=== PATIENT | female | born 1935 | race American Indian/Alaskan Native ===

== ENCOUNTER 2018-03-08 09:11 | Day surgery (SDC) | payer MEDICARE ==
[2018-03-08] MEDS ORDERED: NACL 0.9% 1000 ML 1,000 ML ONE (09:18)
[2018-03-08] MEDS ORDERED: XYLOCAINE MPF 2% ONE (10:00)
--- NOTE | 2018-03-08 11:36 | Anesthesia Consultation ---
Anesthesia Consult and Med Hx Date of service: 03/08/18 - Airway Anesthetic Teeth Evaluation: Poor ROM Head & Neck: Adequate Mental/Hyoid Distance: Adequate Mallampati Class: Class II Intubation Access Assessment: Probably Good - Pulmonary Exam CTA: Yes - Cardiac Exam Cardiac Exam: RRR - Pre-Operative Health Status ASA Pre-Surgery Classification: ASA3 Proposed Anesthetic Plan: MAC - Pulmonary Hx Asthma: Yes - Cardiovascular System Hx Hypertension: Yes - Central Nervous System CVA: Yes - Endocrine Hx Hypothyroidism: Yes - Hematic Hx Anemia: Yes
[2018-03-08] MEDS ORDERED: DIPRIVAN 10 MG/ML IV ONE ×2 (11:37)
--- NOTE | 2018-03-08 11:37 | Anesthesia Day of Surgery ---
Anesthesia Day of Surgery - Day of Surgery Patient Examined: Yes Patient H&P Reviewed: Yes Patient is NPO: Yes
[2018-03-08] MEDS ORDERED: WATER FOR IRRIG STERILE IR ONE (11:39)
[2018-03-08] MEDS ORDERED: WATER FOR IRRIG STERILE ONE (11:39)
[2018-03-08] MEDS ORDERED: NACL 0.9% 1000 ML 1,000 ML IV SCH (12:00)
--- NOTE | 2018-03-08 12:22 | Operative Report ---
Operative Report Operative Report: Date: 03/08/2018 Operative Report: Date of procedure: 03/08/2018 Procedure: Esophagogastroduodenoscopy with multiple mucosal biopsies Attending physician: Constantine Esteban MD Staff Development Manager: Constantine Esteban MD Indication: Patient is a 82-year-old female who presented with a history of dyspepsia with early satiety, abnormal weight loss, iron deficiency anemia and guaiac-positive stool. An upper endoscopy is done to assess patient so that treatment may be directed based on the findings. Consent: Informed consent was obtained after advising the patient and family regarding nature of this procedure, its indications, potential benefits as well as possible complications including but not limited to bleeding perforation and adverse reaction to medication, infection as well as other cardiopulmonary complications. An informed written and verbal consent was then obtained after due opportunity was provided for questions and answers. Monitoring: Patient was monitored continuously with pulse oximetry and electrocardiographic recordings as well as blood pressure recordings. Vital signs remained stable throughout this procedure with no untoward events. Preoperative assessment: Patient was assessed immediately prior to this procedure for capacity to tolerate monitored anesthesia care and moderate sedation as well as general anesthesia. Patient's ASA classification is 2, Mallampati class is 2, Hyomental distance is 3. Instrument: [id number] video endoscope Medications: Propofol given intravenously in divided doses. For details please refer to anesthesia records. Description of procedure: Patient was placed in the left lateral decubitus position after achieving sedation, the endoscope was introduced into the esophagus under direct vision. It was then advanced beyond the esophagus into the stomach and then beyond the stomach into the duodenum and to the second portion of the duodenum. It was subsequently withdrawn with careful inspection of all mucosal surfaces with the following findings. Findings: Esophagus was normal however. There was a 1-2 cm sliding hiatal hernia seen on entry into the stomach. The stomach appeared normal.. Biopsies of the antrum were obtained for histopathology, to rule out microscopic disease. The duodenum was normal to second portion. Impression: Hiatal hernia Status post Mucos biopsies of the gastric antrum . Plan: Follow pathology report. Direct additional treatment based on the pathology report.
--- NOTE | 2018-03-08 12:26 | Operative Report ---
Operative Report Operative Report: Date of procedure: 03/08/2018 Procedure: Colonoscopy. Attending physician: Constantine Esteban MD Shingle Trimmer: Constantine Esteban MD Indication: Patient is a 82-year-old female who presents for screening colonoscopy. Patient also has guaiac positive stool. The colonoscopy serves to evaluate patient so that treatment may be directed based on the findings. Consent: Informed consent was obtained after advising the patient and family regarding nature of this procedure, its indications, potential benefits as well as possible complications including but not limited to bleeding perforation and adverse reaction to medication, infection as well as other cardiopulmonary complications. An informed written and verbal consent was then obtained after due opportunity was provided for questions and answers. Monitoring: Patient was monitored continuously with pulse oximetry and electrocardiographic recordings as well as blood pressure recordings. Vital signs remained stable throughout this procedure with no untoward events. Preoperative assessment: Patient was assessed immediately prior to this procedure for capacity to tolerate monitored anesthesia care and moderate sedation as well as general anesthesia. Patient's ASA classification is 2, Mallampati class is 2, Hyomental distance is 3. Instrument: [employer] Peopl[employer] video colonoscope Medications: Propofol given intravenously in divided doses. For details please refer to anesthesia records. Description of procedure: Patient was placed in the left lateral decubitus position after achieving sedation, a digital rectal examination was performed following which the colonoscope was introduced into the anal verge and advanced to the cecum which was identified by the cecal valve, the appendiceal orifice, as well as by the cecal strap and direct transillumination. The colonoscope was subsequently withdrawn with careful inspection of all mucosal surfaces. Patient tolerated this procedure well and was subsequently taken to the recovery room. The following findings were noted. Findings: Patient had diverticula involving the sigmoid descending colon and the ascending colon. The rest of the colon to the cecum was normal. On the retroflex view at the anal verge, patient had internal hemorrhoids. Impression: Colonic diverticulosis diverticulosis. Internal hemorrhoids. Plan: High-fiber diet. When necessary stool softeners
--- NOTE | 2018-03-08 12:26 | Discharge Summary ---
Short Stay Discharge Plan Activity: advance as tolerated Weight Bearing Status: Weight Bear as Tolerated Diet: regular Follow up with: NOEL JOHNSTON MD [Primary Care Provider] - 7 Days
[2018-03-08 12:36] VITALS: BP 140/71
== END 2018-03-08 09:12 | disposition home or self-care (01) ==
LOC: GIO 09:11
PROVIDERS: ATTEND Internal Medicine Gastroenterology
DX: K29.50 Unspecified chronic gastritis without bleeding (principal); R19.5 Other fecal abnormalities; K57.30 Diverticulosis of large intestine without perforation or abscess without bleeding; K64.8 Other hemorrhoids; D50.9 Iron deficiency anemia, unspecified; R63.4 Abnormal weight loss; K44.9 Diaphragmatic hernia without obstruction or gangrene; J45.909 Unspecified asthma, uncomplicated; I10 Essential (primary) hypertension; E03.9 Hypothyroidism, unspecified; Z86.73 Personal history of transient ischemic attack (TIA), and cerebral infarction without residual deficits
CPT/HCPCS: 43235; 45378; 88305; 88342; J2704; J7030